=== PATIENT | female | born 1950 | race Caucasian/White ===

== ENCOUNTER 2016-11-14 07:46 | Emergency (ER) | payer OTHER ==
[~2016-11-14 07:46] MED LIST: ASPI-94 PO; ATOR40TA49 PO; CARV12.52 PO; ESTR1TAB PO; GLUCTAB PO; LISI-360 PO; LORA-392 PO; MEDR2.5 PO; OMEG600C2 PO
[2016-11-14 07:53] VITALS: BP 171/97; PULSE 87; RESP 16; TEMP 98.5; O2SAT 98
[2016-11-14 07:55] VITALS: O2SAT 98
[2016-11-14] MEDS ORDERED: SODIUM CHLORIDE 0.9% FLUSH 10 ML FLUSH IVF PRN (08:00)
[2016-11-14] MEDS ORDERED: BIOTCAP PO (08:05)
[2016-11-14] MEDS ORDERED: METO100T PO (08:05)
[2016-11-14] MEDS ORDERED: ATOR1TAB18 PO (08:05)
[2016-11-14] MEDS ORDERED: CALCTAB19 PO (08:05)
[2016-11-14] MEDS ORDERED: MEDR2.5 PO (08:05)
[2016-11-14] MEDS ORDERED: UBIQ1CAP4 PO (08:05)
[2016-11-14] MEDS ORDERED: XANA1TAB2 PO (08:05)
[2016-11-14] MEDS ORDERED: ASPI81CH CHEW (08:05)
[2016-11-14] MEDS ORDERED: ESTR1TAB PO (08:05)
[2016-11-14] MEDS ORDERED: METF1000 PO (08:05)
[2016-11-14 08:14] LABS: AUTOMATED NEUTROPHIL # 3.9 TH/MM3 (1.8-7.7); BASOPHIL # 0.1 TH/MM3 (0-0.2); BASOPHIL % 0.7 % (0.0-2.0); EOSINOPHIL # 0.3 TH/MM3 (0-0.4); HEMATOCRIT 40.3 % (35.0-46.0); HEMO FLAGS DIFF FINAL; LYMPH % 34.6 % (9.0-44.0); LYMPHOCYTE # 2.7 TH/MM3 (1.0-4.8); MEAN CELL VOLUME 84.8 FL (80.0-100.0); MEAN CORPUSCULAR HEMOGLOBIN 27.7 PG (27.0-34.0); MEAN CORPUSCULAR HGB CONC 32.7 % (32.0-36.0); NEUT % 50.7 % (16.0-70.0); PLATELET COUNT 188 TH/MM3 (150-450); RED BLOOD COUNT 4.75 MIL/MM3 (4.00-5.30); RED CELL DISTRIBUTION WIDTH 13.8 % (11.6-17.2); WHITE BLOOD COUNT 7.8 TH/MM3 (4.0-11.0)
--- NOTE | 2016-11-14 08:17 | RADRPT ---
EXAM DATE/TIME: 11/14/2016 07:55 [facility] COMPARISON: CHEST SINGLE AP, November 18, 2011, 16:32. INDICATIONS : Palpatations since yesterday. MEDICAL HISTORY : None. SURGICAL HISTORY : None. ENCOUNTER: Initial ACUITY: 2 days PAIN SCORE: 0/10 LOCATION: Bilateral chest FINDINGS: A single view of the chest demonstrates the lungs to be symmetrically aerated without evidence of mas s, infiltrate or effusion. The cardiomediastinal contours are unremarkable. Osseous structures are intact. CONCLUSION: 1. No acute cardiopulmonary disease. Donald Velazquez MD on November 14, 2016 at 8:15 Board Certified Radiologist. This report was verified electronically.
[2016-11-14 08:25] LABS: CHLORIDE 104 MEQ/L (98-107); POTASSIUM 3.8 MEQ/L (3.5-5.1); SODIUM (NA) 138 MEQ/L (136-145)
[2016-11-14 08:26] LABS: APTT (PATIENT) 27.3 SEC (24.3-30.1); PROTHROMBIN TIME - PATIENT 10.7 SEC (9.8-11.6)
[2016-11-14 08:28] LABS: ANION GAP 6 MEQ/L (5-15); BLOOD UREA NITROGEN 12 MG/DL (7-18); MAGNESIUM 2.1 MG/DL (1.5-2.5)
[2016-11-14 08:31] LABS: GLOMERULAR FILTRATION RATE 87 ML/MIN (>89)
[2016-11-14 08:36] LABS: CREATINE KINASE 43 U/L (26-192)
--- NOTE | 2016-11-14 08:58 | PD ---
HPI Chief Complaint: Cardiac Complaint Time Seen by Provider: 07:51 Travel History International Travel<30 days: No Contact w/Intl Traveler<30days: No Traveled to known affect area: No History of Present Illness HPI Pt is 66. She has had palpitations for 2.5 years intermittently however much more often over past couple of weeks. No cp. No diaphoresis, lightheadedness, or nausea accompanies palpitations. She has followed with Dr Ryan, most recently about one week prior. Prior Holter monitors showed no arrhythmia. No drugs/alcohol. No new or different medication of change in medication. PFSH Past Medical History Heart Rhythm Problems: Yes Cancer: Yes (skin) Cardiac Catheterization: No Cardiovascular Problems: Yes (HEART MURMUR, SEE DR RYAN) High Cholesterol: Yes Congestive Heart Failure: No Diabetes: Yes Patient Takes Glucophage: Yes Diminished Hearing: No Hypertension: Yes Neurologic: Yes (neuropathy) Tetanus Vaccination: > 5 Years Influenza Vaccination: Yes ?: Not Tubal Ligation: Yes Past Surgical History Section: Yes (X2) Coronary Artery Bypass Graft: No Tonsillectomy: Yes (ADENECTOMY) Social History Alcohol Use: Yes (rare) Tobacco Use: No Substance Use: No Allergies-Medications (Allergen,Severity, Reaction): Coded Allergies: No Known Allergies (Unverified , 11/14/16) Reported Meds & Prescriptions Reported Meds & Active Scripts Active Reported Calcium 600+D 200 (Calcium Carbonate-Vitamin D) 600-200 Mg-Unit Tab 2 Tab PO DAILY Ultra Coq10 (Ubiquinone) 75 Mg Cap 100 Mg PO DAILY Biotin 5 Mg Cap 5 Mg PO DAILY Xanax (Alprazolam) 1 Mg Tab 0.5 Mg PO Q8H PRN Metoprolol Tartrate 100 Mg Tab 100 Mg PO BID Aspirin 81 Mg Chew 81 Mg CHEW DAILY Atorvastatin (Atorvastatin Calcium) 80 Mg Tab 80 Mg PO HS Estradiol 1 Mg Tab 1 Mg PO DAILY Provera (Medroxyprogesterone Acetate) 2.5 Mg Tab 2.5 Mg PO DAILY Start day 21 Metformin (Metformin HCl) 1,000 Mg Tab 1,000 Mg PO BIDPC With meals Review of Systems Except as stated in HPI: all other systems reviewed are Neg General / Constitutional: No: Fever Cardiovascular: Positive: Palpitations, No: Diaphoresis, Syncope Physical Exam Narrative GENERAL: 66 yo F, WNWD, NAD SKIN: Warm and dry. HEAD: Atraumatic. Normocephalic. EYES: Pupils equal and round. No scleral icterus. No injection or drainage. ENT: No nasal bleeding or discharge. Mucous membranes pink and moist. NECK: Trachea midline. No JVD. CARDIOVASCULAR: Regular rate and rhythm. RESPIRATORY: No accessory muscle use. Clear to auscultation. Breath sounds equal bilaterally. GASTROINTESTINAL: Abdomen soft, non-tender, nondistended. Hepatic and splenic margins not palpable. MUSCULOSKELETAL: Extremities without clubbing, cyanosis, or edema. No obvious deformities. NEUROLOGICAL: Awake and alert. No obvious cranial nerve deficits. Motor grossly within normal limits. Five out of 5 muscle strength in the arms and legs. Normal speech. PSYCHIATRIC: Appropriate mood and affect; insight and judgment normal. Data Data Last Documented VS Vital Signs Date Time Temp Pulse Resp B/P (MAP) Pulse Ox O2 Delivery O2 Flow Rate FiO2 11/14/16 09:03 77 16 142/83 (102) 99 11/14/16 07:55 Room Air 11/14/16 07:53 98.5 VS reviewed Orders Orders Electrocardiogram (11/14/16 07:51) Basic Metabolic Panel (Bmp) (11/14/16 07:51) Ckmb (Isoenzyme) Profile (11/14/16 07:51) Complete Blood Count With Diff (11/14/16 07:51) Magnesium (Mg) (11/14/16 07:51) Prothrombin Time / Inr (Pt) (11/14/16 07:51) Act Partial Throm Time (Ptt) (11/14/16 07:51) Troponin I (11/14/16 07:51) Chest, Single Ap (11/14/16 07:51) Ecg Monitoring (11/14/16 07:51) Iv Access Insert/Monitor (11/14/16 07:51) Oximetry (11/14/16 07:51) Oxygen Administration (11/14/16 07:51) Sodium Chloride 0.9% Flush (Ns Flush) (11/14/16 08:00) Thyroid Stimulating Hormone (11/14/16 07:51) Labs Laboratory Tests Test 11/14/16 07:35 11/14/16 07:38 White Blood Count 7.8 TH/MM3 Red Blood Count 4.75 MIL/MM3 Hemoglobin 13.2 GM/DL Hematocrit 40.3 % Mean Corpuscular Volume 84.8 FL Mean Corpuscular Hemoglobin 27.7 PG Mean Corpuscular Hemoglobin Concent 32.7 % Red Cell Distribution Width 13.8 % Platelet Count 188 TH/MM3 Mean Platelet Volume 8.9 FL Neutrophils (%) (Auto) 50.7 % Lymphocytes (%) (Auto) 34.6 % Monocytes (%) (Auto) 10.0 % Eosinophils (%) (Auto) 4.0 % Basophils (%) (Auto) 0.7 % Neutrophils # (Auto) 3.9 TH/MM3 Lymphocytes # (Auto) 2.7 TH/MM3 Monocytes # (Auto) 0.8 TH/MM3 Eosinophils # (Auto) 0.3 TH/MM3 Basophils # (Auto) 0.1 TH/MM3 CBC Comment DIFF FINAL Differential Comment Prothrombin Time 10.7 SEC Prothromb Time International Ratio 1.0 RATIO Activated Partial Thromboplast Time 27.3 SEC Blood Urea Nitrogen 12 MG/DL Creatinine 0.68 MG/DL Random Glucose 123 MG/DL Calcium Level 8.6 MG/DL Magnesium Level 2.1 MG/DL Sodium Level 138 MEQ/L Potassium Level 3.8 MEQ/L Chloride Level 104 MEQ/L Carbon Dioxide Level 28.0 MEQ/L Anion Gap 6 MEQ/L Estimat Glomerular Filtration Rate 87 ML/MIN Total Creatine Kinase 43 U/L Troponin I LESS THAN 0.02 NG/ML Thyroid Stimulating Hormone 3rd Gen 2.940 uIU/ML [facility] Medical Decision Making Medical Screen Exam Complete: Yes Emergency Medical Condition: Yes Medical Record Reviewed: Yes Differential Diagnosis anemia, electrolyte imbalance, arrhythmia, medication side effect, stimulants, psychosocial Narrative Course CBC & BMP Diagram 11/14/16 07:35 11/14/16 07:38 Calcium Level 8.6, Magnesium Level 2.1 Tn < 0.02 EKG: sinus, rate normal, no pre-excitation morphology CXR: NACPD The patient is resting comfortably and feels better, is alert and in no distress. The patients results and examination findings were discussed. The repeat examination is unremarkable and benign. The history, exam, diagnostic testing, and current condition do not suggest any significant pathology to warrant further testing, continued ED treatment, admission, or surgical evaluation at this point. The vital signs have been stable. The patient does not have uncontrollable pain, intractable vomiting, or other significant symptoms. The patient's condition is stable and appropriate for discharge. The patient will pursue further outpatient evaluation with a primary care physician or other designated or consulting physician as indicated in the discharge instructions. The patient expressed understanding and was agreeable with this plan. Diagnosis Primary Impression: Heart palpitations Referrals: Donald Ryan MD call for appointment Additional Instructions: You have a choice when it comes to health care, and we are glad that you chose [facility]. Hopefully, we have met your expectations on today's visit. You are welcome to return to [facility] at any time, as we are committed to meeting the health care needs of our community. Med/Other Pt SpecificInfo: No Change to Meds Disposition: 01 DISCHARGE HOME Condition: Nicolas Cole MD Nov 14, 2016 08:58
[2016-11-14 09:03] VITALS: BP 142/83
--- NOTE | 2016-11-15 12:01 | EKG ---
Date Performed: 11/14/2016 Time Performed: 07:34:56 PTAGE: 66 years EKG: Sinus rhythm NORMAL ECG Compared to prior tracing no significant change PREVIOUS TRACING :03/09/14 DOCTOR: Jimy Rodriguez Interpretating Date/Time 11/15/2016 11:59:23
== END 2016-11-14 09:03 | disposition home or self-care (01) ==
LOC: PHED 07:46
DX: R00.2 Palpitations (principal); E11.9 Type 2 diabetes mellitus without complications; I10 Essential (primary) hypertension; Z79.84 Long term (current) use of oral hypoglycemic drugs; Z79.899 Other long term (current) drug therapy
CPT/HCPCS: 71010; 80048; 82550; 83735; 84443; 84484; 85025; 85610; 85730; 93005; 99285

== ENCOUNTER 2016-11-19 09:18 | Observation (INO) | payer OTHER ==
[~2016-11-19] VITALS: Ht 172.7 cm; Wt 62.8 kg
[2016-11-19] VITALS (7 sets, daily range): BP systolic 123–177; BP diastolic 77–89; PULSE 65–84; RESP 16–18; TEMP 98.3–98.7; O2SAT 96–99
[~2016-11-19 09:18] MED LIST changes: -ASPI-94 PO; +ASPI81CH CHEW; +ATOR1TAB18 PO; -ATOR40TA49 PO; +BIOTCAP PO; +CALCTAB19 PO; -CARV12.52 PO; -GLUCTAB PO; -LISI-360 PO; -LORA-392 PO; +METF1000 PO; +METO100T PO; -OMEG600C2 PO; +UBIQ1CAP4 PO; +XANA1TAB2 PO
--- NOTE | 2016-11-19 09:40 | PD ---
HPI Chief Complaint: Chest Pain Time Seen by Provider: 09:29 Travel History International Travel<30 days: No Contact w/Intl Traveler<30days: No History of Present Illness HPI 66-year-old female states she developed chest pain today that felt like a pressure. Here at rest that has improved but is still there. She states that Dr. 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 She states she had a stress test that was normal 2 years ago. She states she follows with him for palpitations but has never been diagnosed with any specific arrhythmia. She denies taking an aspirin yet today. She denies any other concurrent complaints. She denies history of chest pain. She states she recently was here for palpitations but at that time did not have chest pain. PFSH Past Medical History Heart Rhythm Problems: Yes Cancer: Yes (skin) Cardiac Catheterization: No Cardiovascular Problems: Yes (HEART MURMUR, SEE DR RYAN) High Cholesterol: Yes Congestive Heart Failure: No Diabetes: Yes Diminished Hearing: No Hypertension: Yes Neurologic: Yes (neuropathy) Tubal Ligation: Yes Past Surgical History Section: Yes (X2) Coronary Artery Bypass Graft: No Tonsillectomy: Yes (ADENECTOMY) Social History Alcohol Use: Yes (rare) Tobacco Use: No Substance Use: No Allergies-Medications (Allergen,Severity, Reaction): Coded Allergies: No Known Allergies (Unverified , 11/14/16) Reported Meds & Prescriptions Reported Meds & Active Scripts Active Reported Calcium 600+D 200 (Calcium Carbonate-Vitamin D) 600-200 Mg-Unit Tab 2 Tab PO DAILY Ultra Coq10 (Ubiquinone) 75 Mg Cap 100 Mg PO DAILY Biotin 5 Mg Cap 5 Mg PO DAILY Xanax (Alprazolam) 1 Mg Tab 0.5 Mg PO Q8H PRN Metoprolol Tartrate 100 Mg Tab 100 Mg PO BID Aspirin 81 Mg Chew 81 Mg CHEW DAILY Atorvastatin (Atorvastatin Calcium) 80 Mg Tab 80 Mg PO HS Estradiol 1 Mg Tab 1 Mg PO DAILY Provera (Medroxyprogesterone Acetate) 2.5 Mg Tab 2.5 Mg PO DAILY Start day 21 Metformin (Metformin HCl) 1,000 Mg Tab 1,000 Mg PO BIDPC With meals Review of Systems Except as stated in HPI: all other systems reviewed are Neg Physical Exam Narrative GENERAL: Well-nourished, well-developed patient. SKIN: Warm and dry. HEAD: Normocephalic and atraumatic. EYES: No injection or drainage. ENT: No nasal drainage noted. NECK: Supple, trachea midline. CARDIOVASCULAR: Regular rate and rhythm RESPIRATORY: Breath sounds equal bilaterally. No accessory muscle use. GASTROINTESTINAL: Abdomen soft, non-tender, nondistended. EXTREMITIES: No edema. BACK: Nontender without obvious deformity. NEUROLOGICAL: Awake and alert. Motor and sensory grossly within normal limits. Normal speech.GENERAL: Well-nourished, well-developed patient. Data Data Last Documented VS Vital Signs Date Time Temp Pulse Resp B/P (MAP) Pulse Ox O2 Delivery O2 Flow Rate FiO2 11/19/16 11:03 Room Air 11/19/16 11:03 74 16 136/77 (96) 98 11/19/16 09:20 98.3 Orders Orders Electrocardiogram (11/19/16 09:33) Ckmb (Isoenzyme) Profile (11/19/16 09:33) Complete Blood Count With Diff (11/19/16 09:33) Comprehensive Metabolic Panel (11/19/16 09:33) Magnesium (Mg) (11/19/16 09:33) Prothrombin Time / Inr (Pt) (11/19/16 09:33) Act Partial Throm Time (Ptt) (11/19/16 09:33) Troponin I (11/19/16 09:33) Chest, Single Ap (11/19/16 09:33) Ecg Monitoring (11/19/16 09:33) Bilateral Bp Monitoring (11/19/16 09:33) Iv Access Insert/Monitor (11/19/16 09:33) Oximetry (11/19/16 09:33) Aspirin (Aspirin) (11/19/16 09:45) Sodium Chloride 0.9% Flush (Ns Flush) (11/19/16 09:45) Nitroglycerin Sl (Nitrostat Sl) (11/19/16 09:45) Admit Order (Ed Use Only) (11/19/16 11:02) Labs Laboratory Tests Test 11/19/16 09:40 White Blood Count 8.3 TH/MM3 Red Blood Count 4.65 MIL/MM3 Hemoglobin 13.1 GM/DL Hematocrit 39.5 % Mean Corpuscular Volume 85.0 FL Mean Corpuscular Hemoglobin 28.3 PG Mean Corpuscular Hemoglobin Concent 33.3 % Red Cell Distribution Width 14.3 % Platelet Count 198 TH/MM3 Mean Platelet Volume 8.5 FL Neutrophils (%) (Auto) 63.6 % Lymphocytes (%) (Auto) 22.9 % Monocytes (%) (Auto) 9.0 % Eosinophils (%) (Auto) 4.0 % Basophils (%) (Auto) 0.5 % Neutrophils # (Auto) 5.4 TH/MM3 Lymphocytes # (Auto) 1.9 TH/MM3 Monocytes # (Auto) 0.7 TH/MM3 Eosinophils # (Auto) 0.3 TH/MM3 Basophils # (Auto) 0.0 TH/MM3 CBC Comment DIFF FINAL Differential Comment Prothrombin Time 10.7 SEC Prothromb Time International Ratio 1.0 RATIO Activated Partial Thromboplast Time 26.5 SEC Blood Urea Nitrogen 15 MG/DL Creatinine 0.76 MG/DL Random Glucose 126 MG/DL Total Protein 6.7 GM/DL Albumin 3.4 GM/DL Calcium Level 8.9 MG/DL Magnesium Level 2.2 MG/DL Alkaline Phosphatase 68 U/L Aspartate Amino Transf (AST/SGOT) 13 U/L Alanine Aminotransferase (ALT/SGPT) 18 U/L Total Bilirubin 0.4 MG/DL Sodium Level 139 MEQ/L Potassium Level 4.1 MEQ/L Chloride Level 103 MEQ/L Carbon Dioxide Level 27.5 MEQ/L Anion Gap 9 MEQ/L Estimat Glomerular Filtration Rate 76 ML/MIN Total Creatine Kinase 34 U/L Troponin I LESS THAN 0.02 NG/ML MDM Medical Decision Making Medical Screen Exam Complete: Yes Emergency Medical Condition: Yes Medical Record Reviewed: Yes (past history confirmed) Interpretation(s) EKG shows NSR, no ST elevation or depression, and no arrhythmias. No significant T-wave inversions. CBC & BMP Diagram 11/19/16 09:40 Total Protein 6.7, Albumin 3.4, Calcium Level 8.9, Magnesium Level 2.2, Alkaline Phosphatase 68, Aspartate Amino Transf (AST/SGOT) 13 L, Alanine Aminotransferase (ALT/SGPT) 18, Total Bilirubin 0.4 Differential Diagnosis Musculoskeletal, gastritis, cardiac Narrative Course Will check blood work, chest x-ray, EKG and dose with aspirin and nitroglycerin and reevaluate ed workup no acute, agrees to [facility] observation Physician Communication Physician Communication dr ponce agrees to [facility] observation Diagnosis Primary Impression: Chest pain Qualified Codes: R07.9 - Chest pain, unspecified Admitting Information Admitting Physician Requests: Observation Martina Hernandez MD Nov 19, 2016 09:40
[2016-11-19] MEDS ORDERED: NITROGLYCERIN 0.4 MG SL 25 TABS/BTL SL ONE (09:45)
[2016-11-19] MEDS ORDERED: ASPIRIN 325 MG TAB PO ONE (09:45)
[2016-11-19] MEDS ORDERED: SODIUM CHLORIDE 0.9% FLUSH 10 ML FLUSH IVF PRN (09:45)
[2016-11-19 09:53] LABS: AUTOMATED NEUTROPHIL # 5.4 TH/MM3 (1.8-7.7); BASOPHIL % 0.5 % (0.0-2.0); EOSINOPHIL # 0.3 TH/MM3 (0-0.4); HEMATOCRIT 39.5 % (35.0-46.0); HEMO FLAGS DIFF FINAL; LYMPH % 22.9 % (9.0-44.0); LYMPHOCYTE # 1.9 TH/MM3 (1.0-4.8); MEAN CORPUSCULAR HEMOGLOBIN 28.3 PG (27.0-34.0); MEAN CORPUSCULAR HGB CONC 33.3 % (32.0-36.0); NEUT % 63.6 % (16.0-70.0); PLATELET COUNT 198 TH/MM3 (150-450); RED BLOOD COUNT 4.65 MIL/MM3 (4.00-5.30); RED CELL DISTRIBUTION WIDTH 14.3 % (11.6-17.2); WHITE BLOOD COUNT 8.3 TH/MM3 (4.0-11.0)
[2016-11-19 10:02] LABS: CHLORIDE 103 MEQ/L (98-107); POTASSIUM 4.1 MEQ/L (3.5-5.1); SODIUM (NA) 139 MEQ/L (136-145)
[2016-11-19 10:06] LABS: ANION GAP 9 MEQ/L (5-15); APTT (PATIENT) 26.5 SEC (24.3-30.1); BICARBONATE 27.5 MEQ/L (21.0-32.0); BLOOD UREA NITROGEN 15 MG/DL (7-18); MAGNESIUM 2.2 MG/DL (1.5-2.5); PROTHROMBIN TIME - PATIENT 10.7 SEC (9.8-11.6)
[2016-11-19 10:09] LABS: ALT (GPT) 18 U/L (10-53); AST (GOT) 13 U/L (15-37); GLOMERULAR FILTRATION RATE 76 ML/MIN (>89)
[2016-11-19 10:10] LABS: TOTAL BILIRUBIN ADULT 0.4 MG/DL (0.2-1.0)
[2016-11-19 10:12] LABS: ALKALINE PHOSPHATASE 68 U/L (45-117)
[2016-11-19 10:47] LABS: CREATINE KINASE 34 U/L (26-192)
--- NOTE | 2016-11-19 10:54 | RADRPT ---
EXAM DATE/TIME: 11/19/2016 10:21 [facility] COMPARISON: CHEST SINGLE AP, November 14, 2016, 7:55. INDICATIONS : Chest pain MEDICAL HISTORY : None. SURGICAL HISTORY : None. ENCOUNTER: Initial ACUITY: 1 day PAIN SCORE: 4/10 LOCATION: Bilateral chest FINDINGS: A single view of the chest demonstrates the lungs to be symmetrically aerated without evidence of mas s, infiltrate or effusion. The cardiomediastinal contours are unremarkable. Osseous structures are intact. CONCLUSION: Normal examination. The Liliana Campbell MD on November 19, 2016 at 10:52 Board Certified Radiologist. This report was verified electronically.
[2016-11-19] MEDS ORDERED: SODIUM CHLORIDE 0.9% FLUSH 10 ML FLUSH IV FLUSH PRN (11:30)
[2016-11-19] MEDS ORDERED: ONDANSETRON HCL 4 MG/2 ML VIAL IVP PRN (11:30)
[2016-11-19] MEDS ORDERED: NALOXONE HCL 0.4 MG/ML AMP IV PUSH PRN (11:30)
[2016-11-19] MEDS ORDERED: MORPHINE SULFATE 4 MG/ML INJ IV PUSH PRN ×2 (11:30)
[2016-11-19] MEDS ORDERED: MAGNESIUM HYDROXIDE SUSP 30 ML CUP PO PRN (11:30)
--- NOTE | 2016-11-19 11:38 | EKG ---
Date Performed: 11/19/2016 Time Performed: 09:26:03 PTAGE: 66 years EKG: Sinus rhythm NORMAL ECG NO PREVIOUS TRACING DOCTOR: David Mejía Interpretating Date/Time 11/19/2016 11:36:01
[2016-11-19] MEDS ORDERED: ALPRAZolam 1 MG TAB PO PRN (13:30)
[2016-11-19] MEDS ORDERED: NITROGLYCERIN 0.4 MG SL 25 TABS/BTL SL PRN (13:30)
--- NOTE | 2016-11-19 13:32 | HHI.HP ---
[facility] Stephan Yee MD Admission Diagnosis chest pain Diagnoses: (1) Chest pain Diagnosis: Principal Chief Complaint: Chest pain Travel History International Travel<30 Days: No Contact w/Intl Traveler <30 Da: No Traveled to Known Affected Are: No History of Present Illness Written by Jordan Cooper, acting as scribe for Dr. Gray on 11/19/16 at 13: 21. 66-year-old female with known history of hypertension, hyperlipidemia , diabetes, premature atrial contractions, postmenopausal who presented to hospital because of acute onset of chest pain. Patient states that when she woke up this morning she noticed that her blood pressure was more elevated than usual prior to her taking her blood pressure medications. She states that her systolic blood pressure is 160. She had her breakfast and had a cup of decaf coffee. Approximately at 8:15 this morning while she was sitting on the couch she had a sudden onset of midsternal chest pain 7-8/10 on a pain scale that radiated to her back and then up into her neck. She did not have any nausea, vomiting, diaphoresis, lightheadedness, dizziness, shortness of breath, dyspnea. Because she was experiencing this pain she immediately came to the ER for evaluation. She was still experiencing the pain when she got to the ER however the pain did resolve after approximately 30 minutes. Patient was not given any medication in the ER. 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 Ryan. Patient states that she does have history of PACs in which she states that she feels palpitations all the time. ER physician indicated that patient would benefit from observation in the chest pain center and the patient agreed. The patient does have an appointment with her extrusion press adjuster on Monday of this week. Review of Systems Cardiovascular: COMPLAINS OF: Chest pain, Palpitations Except as stated in HPI: all other systems reviewed are Neg Past Family Social History Past Medical History Hypertension Hyperlipidemia Diabetes Postmenopausal Premature atrial contractions Past Surgical History Tubal ligation 2 Reported Medications Reported Meds & Active Scripts Active Reported Calcium 600+D 200 (Calcium Carbonate-Vitamin D) 600-200 Mg-Unit Tab 2 Tab PO DAILY Ultra Coq10 (Ubiquinone) 75 Mg Cap 100 Mg PO DAILY Biotin 5 Mg Cap 5 Mg PO DAILY Xanax (Alprazolam) 1 Mg Tab 0.5 Mg PO Q8H PRN Metoprolol Tartrate 100 Mg Tab 100 Mg PO BID Aspirin 81 Mg Chew 81 Mg CHEW DAILY Atorvastatin (Atorvastatin Calcium) 80 Mg Tab 80 Mg PO HS Estradiol 1 Mg Tab 1 Mg PO DAILY Provera (Medroxyprogesterone Acetate) 2.5 Mg Tab 2.5 Mg PO DAILY Start day 21 Metformin (Metformin HCl) 1,000 Mg Tab 1,000 Mg PO BIDPC With meals Allergies: Coded Allergies: No Known Allergies (Unverified , 11/14/16) Family History Reviewed is significant for father in his 70s because of myocardial infarction. Mother at age 78 with history of colon cancer and multiple strokes Social History Patient quit smoking 40 years ago, prior to that she smoked one quarter pack a cigarettes since she was 20 years old. Denies any alcohol or illicit drugs Physical Exam Vital Signs Vital Signs Date Time Temp Pulse Resp B/P (MAP) Pulse Ox O2 Delivery O2 Flow Rate FiO2 11/19/16 12:45 98.5 75 18 150/84 (106) 99 11/19/16 12:30 11/19/16 12:11 72 17 140/77 (98) 97 Room Air 11/19/16 11:03 Room Air 11/19/16 11:03 74 16 136/77 (96) 98 Room Air 11/19/16 10:33 70 16 142/79 (100) 96 11/19/16 09:20 98.3 82 16 177/89 (118) 98 Physical Exam GENERAL: Well-developed, well-nourished, in no acute distress. alert and orientated HEENT: Head is normocephalic without any lesions or masses noted. Facial features are symmetric. Eyes: Pupils equal round reactive to light. Extraocular muscles are intact. Conjunctivae were clear. Oropharyngeal: Pharynx without any erythema edema. Tongue is midline without deviation. Buccal mucosa is moist without any masses or lesions NECK: Supple without any masses. Trachea midline no deviation. No JVD, no bruits are appreciated CARDIAC: Regular rhythm, regular rate. S1/S2 are heard. No murmurs gallops or rubs. LUNGS: Clear to auscultation bilaterally. No wheeze, rhonchi or rales. No use of accessory muscles on inspiration or expiration. ABDOMEN: Soft, nontender. Nondistended. Bowel sounds heard in all 4 quadrants. No organomegaly or masses. Negative rebound, negative guarding EXTREMITIES: No edema, pulses are equal bilaterally. No cyanosis or clubbing NEUROLOGY: Mood and affect appear appropriate. Cranial nerves II through XII grossly intact. Muscle strength 5/5 in upper and lower extremities bilaterally. Deep tendon reflexes are 2+ in upper and lower extremities bilaterally. Laboratory Laboratory Tests Test 11/19/16 09:40 White Blood Count 8.3 Red Blood Count 4.65 Hemoglobin 13.1 Hematocrit 39.5 Mean Corpuscular Volume 85.0 Mean Corpuscular Hemoglobin 28.3 Mean Corpuscular Hemoglobin Concent 33.3 Red Cell Distribution Width 14.3 Platelet Count 198 Mean Platelet Volume 8.5 Neutrophils (%) (Auto) 63.6 Lymphocytes (%) (Auto) 22.9 Monocytes (%) (Auto) 9.0 Eosinophils (%) (Auto) 4.0 Basophils (%) (Auto) 0.5 Neutrophils # (Auto) 5.4 Lymphocytes # (Auto) 1.9 Monocytes # (Auto) 0.7 Eosinophils # (Auto) 0.3 Basophils # (Auto) 0.0 CBC Comment DIFF FINAL Differential Comment Prothrombin Time 10.7 Prothromb Time International Ratio 1.0 Activated Partial Thromboplast Time 26.5 Blood Urea Nitrogen 15 Creatinine 0.76 Random Glucose 126 Total Protein 6.7 Albumin 3.4 Calcium Level 8.9 Magnesium Level 2.2 Alkaline Phosphatase 68 Aspartate Amino Transf (AST/SGOT) 13 Alanine Aminotransferase (ALT/SGPT) 18 Total Bilirubin 0.4 Sodium Level 139 Potassium Level 4.1 Chloride Level 103 Carbon Dioxide Level 27.5 Anion Gap 9 Estimat Glomerular Filtration Rate 76 Total Creatine Kinase 34 Troponin I LESS THAN 0.02 Result Diagram: 11/19/1693911/19/16939 Imaging Last Impressions Chest X-Ray 11/19/16932 Signed Impressions: Service Date/Time: Saturday, November 19, 2016 10:21 - CONCLUSION: Normal examination. The MD Yamileth Mathews VTE Risk Assessment Caprini VTE Risk Assessment: Mod/High Risk (score >= 2) Caprini Risk Assessment Model Point Value = 1 Point Value = 2 Point Value = 3 Point Value = 5 Age 41-60 Minor surgery BMI > 25 kg/m2 Swollen legs Varicose veins or History of unexplained or recurrent spontaneous Oral contraceptives or hormone replacement Sepsis (< 1 month) Serious lung disease, including pneumonia (< 1 month) Abnormal pulmonary function Acute myocardial infarction Congestive heart failure (< 1 month) History of inflammatory bowel disease Medical patient at bed rest Age 61-74 Arthroscopic surgery Major open surgery (> 45 min) Laparoscopic surgery (> 45 min) Malignancy Confined to bed (> 72 hours) Immobilizing plaster cast Central venous access Age >= 75 History of VTE Family history of VTE Factor V Leiden Prothrombin [id number] Lupus anticoagulant Anticardiolipin antibodies Elevated serum homocysteine Heparin-induced thrombocytopenia Other congenital or acquired thrombophilia Stroke (< 1 month) Elective arthroplasty Hip, pelvis, or leg fracture Acute spinal cord injury (< 1 month) Prophylaxis Regimen Total Risk Factor Score Risk Level Prophylaxis Regimen 0-1 Low Early ambulation 2 Moderate Order ONE of the following: *Sequential Compression Device (SCD) *Heparin 5000 units SQ BID 3-4 Higher Order ONE of the following medications: *Heparin 5000 units SQ TID *Enoxaparin/Lovenox 40 mg SQ daily (WT < 150 kg, CrCl > 30 mL/min) *Enoxaparin/Lovenox 30 mg SQ daily (WT < 150 kg, CrCl > 10-29 mL/min) *Enoxaparin/Lovenox 30 mg SQ BID (WT < 150 kg, CrCl > 30 mL/min) AND/OR *Sequential Compression Device (SCD) 5 or more Highest Order ONE of the following medications: *Heparin 5000 units SQ TID (Preferred with Epidurals) *Enoxaparin/Lovenox 40 mg SQ daily (WT < 150 kg, CrCl > 30 mL/min) *Enoxaparin/Lovenox 30 mg SQ daily (WT < 150 kg, CrCl > 10-29 mL/min) *Enoxaparin/Lovenox 30 mg SQ BID (WT < 150 kg, CrCl > 30 mL/min) AND *Sequential Compression Device (SCD) Assessment and Plan Assessment and Plan Midsternal chest pain Patient with increased risk factors to include age, hypertension, hyperlipidemia , history tobacco use, family history of heart disease Continue to rule patient out for acute coronary event with serial cardiac enzymes and serial EKGs Continue aspirin, nitroglycerin as needed, morphine for pain control Will pursue nuclear stress test in the a.m. if patient is ruled out for an acute coronary event Hypertension, premature atrial contractions, hyperlipidemia Continue patient's home medications Continue monitor telemetry Check lipid panel Diabetes Continue metformin DVT prevention Sequential compression devices This note was transcribed by scribe [Jordan Cooper]. I, Dr. Nicolas Gray personally performed the history, physical exam, and medical decision making; and confirmed the accuracy of the information in the transcribed note. Authenticated by Dr. Nicolas Gray on 11/19/16 at 14:44. Discussed Condition With Patient, ER physician Problem Qualifiers (1) Chest pain: Qualified Codes: R07.9 - Chest pain, unspecified Jordan Cooper Nov 19, 2016 13:32 Nicolas Gray MD Nov 19, 2016 14:44
[2016-11-19 13:59] LABS: CREATINE KINASE 32 U/L (26-192)
--- NOTE | 2016-11-19 15:58 | EKG ---
Date Performed: 11/19/2016 Time Performed: 13:20:15 PTAGE: 66 years EKG: Sinus rhythm WITH OCCASIONAL PAC BORDERLINE ECG PREVIOUS TRACING : 11/19/2016 09.26 No significant change from previous tracing noted. DOCTOR: David Mejía Interpretating Date/Time 11/19/2016 15:56:38
[2016-11-19] MEDS: metFORMIN HCL 500 MG TAB PO SCH (17:32)
[2016-11-19 18:15] LABS: CREATINE KINASE 30 U/L (26-192)
[2016-11-19] MEDS: METOPROLOL TARTRATE 100 MG TAB PO SCH (20:46)
[2016-11-19] MEDS: SODIUM CHLORIDE 0.9% FLUSH 10 ML FLUSH IV FLUSH SCH (20:46)
[2016-11-19] MEDS ORDERED: ATORVASTATIN 40 MG TAB PO SCH (21:00)
[2016-11-20 01:09] VITALS: BP 121/77; PULSE 67; RESP 16; TEMP 98; O2SAT 98
--- NOTE | 2016-11-20 01:18 | EKG ---
Date Performed: 11/19/2016 Time Performed: 16:53:30 PTAGE: 66 years EKG: Sinus rhythm WITH OCCASIONAL SUPRAVENTRICULAR PREMATURE COMPLEXES BORDERLINE ECG PREVIOUS TRACING : 11/19/2016 13.20 No significant change from previous tracing noted. DOCTOR: David Mejía Interpretating Date/Time 11/20/2016 01:16:33
[2016-11-20 04:37] VITALS: BP 135/85; PULSE 63; RESP 16; TEMP 98.1; O2SAT 99
[2016-11-20 07:14] LABS: AUTOMATED NEUTROPHIL # 4.2 TH/MM3 (1.8-7.7); BASOPHIL % 0.6 % (0.0-2.0); EOSINOPHIL # 0.4 TH/MM3 (0-0.4); EOSINOPHIL % 4.6 % (0.0-4.0); HEMATOCRIT 37.8 % (35.0-46.0); HEMO FLAGS DIFF FINAL; LYMPH % 29.6 % (9.0-44.0); LYMPHOCYTE # 2.3 TH/MM3 (1.0-4.8); MEAN CELL VOLUME 84.8 FL (80.0-100.0); MEAN CORPUSCULAR HEMOGLOBIN 28.3 PG (27.0-34.0); MEAN CORPUSCULAR HGB CONC 33.4 % (32.0-36.0); MONO % 10.2 % (0.0-8.0); PLATELET COUNT 189 TH/MM3 (150-450); RED BLOOD COUNT 4.47 MIL/MM3 (4.00-5.30); RED CELL DISTRIBUTION WIDTH 13.9 % (11.6-17.2); WHITE BLOOD COUNT 7.7 TH/MM3 (4.0-11.0)
[2016-11-20 07:23] LABS: CHLORIDE 105 MEQ/L (98-107); SODIUM (NA) 140 MEQ/L (136-145)
[2016-11-20 07:29] LABS: ANION GAP 6 MEQ/L (5-15); BLOOD UREA NITROGEN 15 MG/DL (7-18)
[2016-11-20 07:32] LABS: ALT (GPT) 17 U/L (10-53); AST (GOT) 13 U/L (15-37); GLOMERULAR FILTRATION RATE 96 ML/MIN (>89)
[2016-11-20 07:34] LABS: TOTAL BILIRUBIN ADULT 0.6 MG/DL (0.2-1.0)
[2016-11-20 07:35] LABS: ALKALINE PHOSPHATASE 63 U/L (45-117)
[2016-11-20 08:00] VITALS: BP 134/89; PULSE 73; RESP 18; TEMP 98.4; O2SAT 96
[2016-11-20] MEDS: METOPROLOL TARTRATE 100 MG TAB PO SCH (08:50)
[2016-11-20] MEDS: SODIUM CHLORIDE 0.9% FLUSH 10 ML FLUSH IV FLUSH SCH (08:50)
[2016-11-20] MEDS ORDERED: ASPIRIN 81 MG CHEW TAB CHEW SCH (09:00)
[2016-11-20 10:08] LABS: HDL CHOLESTEROL 65.3 MG/DL (40.0-60.0); LDL CHOLESTEROL 29 MG/DL (0-99)
--- NOTE | 2016-11-20 10:44 | TR ---
Date Performed: 11/20/2016 Time Performed: 10:01:07 DOCTOR: Mateo Iyer DRUG LIST: CLINICAL HISTORY: REASON FOR TEST: REASON FOR ENDING: Fatigue/Weakness OBSERVATION: Arrhythmia: None Chest Pain: None CONCLUSION: Patient was not able to complete KENIA protocol due to physical stamina, did perform Total Exercise Time=9:00 Maximum YA=808 % Max HR Achieved=75.0% Maximum FH=867/80, Patient was asymp tomaic during testing, During peak exercise patient did not have any significant ST depression, quick upsloping ST segments, recovery period, HR and BP returned to baseline COMMENTS: Negative low level test. Low probability of sig ischemic heart disease as cause of cu rrent presentation.
[2016-11-20] MEDS: metFORMIN HCL 500 MG TAB PO SCH (11:07)
--- NOTE | 2016-11-20 11:11 | HHI.DS ---
Discharge Summary Admission Date Nov 19, 2016 at 11:05 Discharge Date: Nov 20, 2016 Admitting Diagnosis chest pain (1) Chest pain ICD Code: R07.9 - Chest pain, unspecified Diagnosis: Principal Status: Acute Procedures Exercise stress test Brief History - From Admission Written by Jordan Cooper, acting as scribe for Dr. Gray on 11/19/16 at 13: 21. 66-year-old female with known history of hypertension, hyperlipidemia , diabetes, premature atrial contractions, postmenopausal who presented to hospital because of acute onset of chest pain. Patient states that when she woke up this morning she noticed that her blood pressure was more elevated than usual prior to her taking her blood pressure medications. She states that her systolic blood pressure is 160. She had her breakfast and had a cup of decaf coffee. Approximately at 8:15 this morning while she was sitting on the couch she had a sudden onset of midsternal chest pain 7-8/10 on a pain scale that radiated to her back and then up into her neck. She did not have any nausea, vomiting, diaphoresis, lightheadedness, dizziness, shortness of breath, dyspnea. Because she was experiencing this pain she immediately came to the ER for evaluation. She was still experiencing the pain when she got to the ER however the pain did resolve after approximately 30 minutes. Patient was not given any medication in the ER. Patient's immigration manager Dr. Ryan. Patient states that she does have history of PACs in which she states that she feels palpitations all the time. ER physician indicated that patient would benefit from observation in the chest pain center and the patient agreed. The patient does have an appointment with her immigration manager on Monday of this week. CBC/BMP: 11/20/16 0635 11/20/16 0635 Significant Findings Laboratory Tests Test 11/19/16 09:40 11/19/16 13:15 11/19/16 17:00 11/20/16 06:35 Monocytes (%) (Auto) 9.0 % (0.0-8.0) 10.2 % (0.0-8.0) Random Glucose 126 MG/DL (74-106) 110 MG/DL (74-106) Aspartate Amino Transf (AST/SGOT) 13 U/L (15-37) 13 U/L (15-37) Estimat Glomerular Filtration Rate 76 ML/MIN (>89) Troponin I LESS THAN 0.02 NG/ML LESS THAN 0.02 NG/ML LESS THAN 0.02 NG/ML Eosinophils (%) (Auto) 4.6 % (0.0-4.0) Albumin 3.2 GM/DL (3.4-5.0) Calcium Level 8.3 MG/DL (8.5-10.1) Cholesterol Level 105 MG/DL (120-200) HDL Cholesterol 65.3 MG/DL (40.0-60.0) Hospital Course Mrs. Vee is a 66-year-old female. She was admitted secondary to an episode of left-sided chest pain which included her chest, back, and neck. The pain had subsided shortly after arrival to the ER and have not recurred during her stay here. A CSF evaluation was performed. Cardiac enzymes and EKG findings were negative. An exercise stress test was performed today, patient had no abnormalities on this test. Patient remained symptom-free. She is medically stable for discharge to home today. Pt Condition on Discharge: Stable Discharge Disposition: Discharge Home Discharge Time: <= 30 minutes Discharge Instructions DIET: Follow Instructions for: As Tolerated, No Restrictions Activities you can perform: Regular-No Restrictions Follow up Referrals: PCP Follow-up - 2 Weeks Continued Medications: Alprazolam (Xanax) 1 Mg Tab 0.5 MG PO Q8H PRN for ANXIETY, TAB 0 Refills Aspirin (Aspirin) 81 Mg Chew 81 MG CHEW DAILY, TAB 0 Refills Atorvastatin (Atorvastatin) 80 Mg Tab 80 MG PO HS for Cholesterol Management, #30 TAB 0 Refills Biotin (Biotin) 5 Mg Cap 5 MG PO DAILY for Nutritional Supplement, #1 BOTTLE 0 Refills Calcium Carbonate-Vitamin D (Calcium 600+D 200) 600-200 Mg-Unit Tab 2 TAB PO DAILY for Nutritional Supplement, TAB 0 Refills Estradiol (Estradiol) 1 Mg Tab 1 MG PO DAILY for Estrogen Supplements, #30 TAB 0 Refills Medroxyprogesterone Acetate (Provera) 2.5 Mg Tab 2.5 MG PO DAILY for Uterine bleeding, #5 TAB Start day 21 Metformin (Metformin) 1,000 Mg Tab 1000 MG PO BIDPC for Blood Sugar Management, #60 TAB 0 Refills With meals Metoprolol Tartrate (Metoprolol Tartrate) 100 Mg Tab 100 MG PO BID, #60 TAB 0 Refills Ubiquinone (Ultra Coq10) 75 Mg Cap 100 MG PO DAILY Nicolas Gray MD Nov 20, 2016 11:11
[2016-11-21 15:57] LABS: HEMOGLOBIN A1b 2.1 %; HEMOGLOBIN Ao 83.8 %; HEMOGLOBIN LA1C 1.7 %; HEMOGLOBIN P3 3.9 %
== END 2016-11-20 11:26 | disposition home or self-care (01) ==
LOC: PHED 09:18 → PHEDA 11:05 → PH3A 12:22
PROVIDERS: ADMIT Hospitalist; ATTEND Hospitalist
DX: R07.9 Chest pain, unspecified (principal); I49.1 Atrial premature depolarization; I10 Essential (primary) hypertension; R94.31 Abnormal electrocardiogram [ECG] [EKG]; E78.5 Hyperlipidemia, unspecified; E11.9 Type 2 diabetes mellitus without complications; Z79.84 Long term (current) use of oral hypoglycemic drugs; Z87.891 Personal history of nicotine dependence
CPT/HCPCS: 71010; 80053; 80061; 82550; 83036; 83735; 84484; 85025; 85610; 85730; 93005; 93017; 99285; G0378